=== PATIENT | male | born 1995 | race Caucasian/White ===

== ENCOUNTER 2020-02-20 19:42 | Emergency (ER) | payer OTHER ==
[~2020-02-20] VITALS: Ht 170.2 cm; Wt 70.3 kg
[2020-02-20] MEDS ORDERED: KEFLEX500 MG PO (20:13)
== END 2020-02-20 20:25 | disposition home or self-care (01) ==
LOC: ED 19:42
DX: L03.314 Cellulitis of groin (principal); F17.200 Nicotine dependence, unspecified, uncomplicated
CPT/HCPCS: 81001; 99283

== ENCOUNTER 2020-02-28 12:38 | Emergency (ER) | payer OTHER ==
[~2020-02-28] VITALS: Ht 170.2 cm; Wt 70.3 kg
[~2020-02-28 12:38] MED LIST: KEFLEX500 MG PO
--- OUTSIDE RECORDS SUMMARY | 2020-02-28 12:40 | XMS ---
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 Jv has no Care Guidelines for this patient. Jessica VISIT COUNT (12 MO.) 1 [facility] 2 [facility] T[facility] NOTE: Visits indicate total known visits. ED/UCC VISIT TRACKING (12 MO.) 02/28/2020 12:39 [facility] [place] [facility] COMPLAINT: - GROIN PAIN 02/20/2020 19:43 DEANDRA Kan OR TYPE: Emergency COMPLAINT: - SWOLLEN GROIN DIAGNOSES: - Cellulitis of groin - Left lower quadrant pain - Nicotine dependence, unspecified, uncomplicated 08/20/2019 11:31 Abe YOUNG OR TYPE: Emergency DIAGNOSES: - Left Thumb Injury - Followup Medical Problem - Thumb Injury - Laceration without foreign body of unspecified thumb without damage to nail, initial encounter - Laceration without foreign body of unspecified thumb without damage to nail, initial encounter INPATIENT VISIT TRACKING (12 MO.) No inpatient visits to display in this time frame [email or web address]
== END 2020-02-28 12:58 | disposition left against medical advice (07) ==
LOC: ED 12:38
DX: Z53.21 Procedure and treatment not carried out due to patient leaving prior to being seen by health care provider (principal)

== ENCOUNTER 2020-12-09 07:52 | Day surgery (SDC) | payer OTHER ==
[~2020-12-09] VITALS: Ht 172.7 cm; Wt 69.0 kg
[~2020-12-09 07:52] MED LIST changes: +BUSPIRONE HCL5 MG PO; +FAMOTIDINE20 MG PO
--- NOTE | 2020-12-09 09:24 | NUR ---
12/09/20 0924 Colby Alcala RESPONDS TO VOICE AT 0923. OPA REMOVED. DENIES NAUSEA OR PAIN. FALLS ASALEEP EASILY
--- NOTE | 2020-12-09 09:50 | NUR ---
0428-PATIENT BACK TO ROOM FROM PACU. RECEIVED REPORT FROM IRENE POPE. PATIENT IS AWAKE. RATES PAIN A 0/10 BUT HIS THROAT IS A LITTLE SORE. DENIES NAUSEA. VSS. PROVIDED PATEINT WITH WATER AND APPLESAUCE. MOM AT BEDSIDE. CALL LIGHT WITHIN REACH. 1000-PATEINT UP TO THE RESTROOM. GAIT STEADY TOLERATED WELL.
--- NOTE | 2020-12-09 10:50 | NUR ---
PATIENT RESTING IN BED. VSS. DENIES NAUSEA AND PAIN. PATIENT STATES THROAT A LITTLE SORE. DRINKING WATER. MOM AT BEDSIDE AND CALL LIGHT WITHIN REACH. PATIENT READY TO GO HOME.
--- NOTE | 2020-12-09 10:53 | OR ---
[facility] [address], [place] [address] Signed DATE OF OPERATION: 12/09/2020 SURGEON: Maris Macias MD PREOPERATIVE DIAGNOSIS: Epigastric abdominal pain. POSTOPERATIVE DIAGNOSIS: Moderate diffuse gastritis. PROCEDURES: EGD with CLOtest and biopsies of the antrum and distal esophagus. ESTIMATED BLOOD LOSS: None. INDICATIONS: Jus is a 25-year-old gentleman asked to see me for upper endoscopy. [place] 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 He said he has significant anxiety and therefore, he drinks 8-10 beers at night to help relax and go to bed. He also smokes a little marijuana to help relax. He likes to smoke 1-10 cigarettes a day. He will chew snuff about once every four months. He went to see his primary care provider. Apparently, he is taking Pepcid and that helps. He was asked to see me for consideration of upper endoscopy. It sounds like he even used omeprazole and Carafate. In the office, I gave him a pamphlet on upper endoscopy. We looked at that together in detail. He understands the nature of that test. There is risk including, but not limited to gas bloating, crampy abdominal pain, bleeding, perforation requiring surgery, and missed diagnosis. In addition because of his daily habits, he is clearly in need of monitored anesthesia care for sedation. In fact, he took a large amount of inhaled anesthetic today for his procedure. He had expressed understanding and wished to proceed. PROCEDURE NOTE: Jus was taken into our endoscopy suite and placed in a supine semi-recumbent position. He was placed under general endotracheal tube anesthesia. He did take a large amount of inhaled anesthetic and was just fine with his heart rate and blood pressure and so forth. In fact, he was breathing through large amounts of inhaled anesthetic. The adult gastroscope had been introduced and advanced under direct visualization out into the third portion of the duodenum. The duodenum and pyloric Electronically Signed By: MARIS MACIAS MD 12/09/20 1053 PATIENT NAME: JUS STEPHENS OPERATIVE REPORT DATE OF : [birth year] REPORT #: [id number] PHYSICIAN: MARIS MACIAS MD PCP: YRIS SOLIMAN MD REPORT IS CONFIDENTIAL AND NOT TO BE RELEASED WITHOUT AUTHORIZATION [facility] [address] [place], [place] [address] Signed channel were unremarkable. His stomach showed moderate diffuse erythematous changes throughout. There was no active bleeding. There were no ulcerations. We took biopsies from the antrum for pathologic review and CLOtest. Upon retroflexion of the scope, I really could not appreciate a true hiatal hernia. The scope was withdrawn up through the area of the GE junction, which was compliant without stricture. He has very minimal disruption to his Z-line with a little irritation in the distal esophagus. Therefore, we took an additional biopsy just above the Z-line for pathologic review. His middle and upper esophagus were unremarkable. After this, the gas was suctioned out and the gastroscope removed. Jus tolerated the procedure quite well. He was weaned from anesthesia, extubated in the OR, and taken to recovery room in stable condition. Maris Macias MD ALB/MODL /[id number] cc: MD Yris Vang MD Copies: MARIS MACIAS MD ~ Electronically Signed By: MARIS MACIAS MD 12/09/20 1053 PATIENT NAME: JUS STEPHENS JUANITA OPERATIVE REPORT DATE OF : [birth year] REPORT #: [id number] PHYSICIAN: MARIS MACIAS MD PCP: YRIS SOLIMAN MD REPORT IS CONFIDENTIAL AND NOT TO BE RELEASED WITHOUT AUTHORIZATION
--- NOTE | 2020-12-09 10:55 | NUR ---
PROVIDED PATINET WITH DISCHARGE INSTRUCTIONS. VERBALIZED UNDERSTANDING AND ALL QUESTIONS ANSWERED. PROVIDED PATIENT A WHEEL CHAIR RIDE TO FRONT OF HOSPITAL WHERE HIS RIDE WAS WAITING.
--- NOTE | 2020-12-13 13:41 | PATH ---
[facility] [address] [place], [place] [address] Signed SPECIMEN(S): A ANTRUM/PYLORUS BIOPSY SPECIMEN(S): B LOWER ESOPHAGUS BIOPSY SPECIMEN SOURCE: A. ANTRUM/PYLORUS BIOPSY B. LOWER ESOPHAGUS BIOPSY CLINICAL HISTORY: EGD. Epigastric pain. Postop: Gastritis. MICROSCOPIC DESCRIPTION: Histologic sections of all submitted blocks are examined by light microscopy. These findings, together with the gross examination, support the pathologic diagnosis. FINAL PATHOLOGIC DIAGNOSIS: A. Antrum/pylorus, biopsy: - No significant histopathologic alterations. B. Lower esophagus, biopsy: - Reflux esophagitis. - No evidence of Ortiz's esophagus COMMENT: Regarding specimen A, the sections through the gastric biopsies show fragments of histologically unremarkable antral mucosa. There is no evidence of acute or chronic inflammation. There is no evidence of H. pylori, intestinal metaplasia, abnormal infiltrates or neoplasia. Regarding specimen B, the sections through the biopsy show strips of reactive-appearing squamous mucosa with basal cell hyperplasia. The epithelium is infiltrated by lymphocytes and small numbers of eosinophils. No glandular mucosa or intestinal metaplasia is identified. TWK:emh:C2NR GROSS DESCRIPTION: Two specimens are received in two containers, labeled "MG." A. The specimen, labeled "MG, 1," and designated on the requisition "antrum/pylorus," is received in formalin and consists of one stover soft tissue fragment that measures 0.3 cm in greatest dimension. The specimen is entirely submitted in cassette (A1). B. The specimen, labeled "MG, 2," and designated on the requisition "lower esophagus," is received in formalin and consists of one stover soft tissue PATIENT NAME: JULIANNE STEPHENS PATHOLOGY DATE OF : [birth year] REPORT #: [id number] PHYSICIAN: ZINA MCCLAIN PCP: ZOHREH SOLIMAN MD REPORT IS CONFIDENTIAL AND NOT TO BE RELEASED WITHOUT AUTHORIZATION [facility] [address] [place] [address] Signed fragment that measures 0.3 cm in greatest dimension. The specimen is entirely submitted in cassette (B1). AT (under the direct supervision of a pathologist) The Gross Description was prepared using a voice recognition system. The report was reviewed for accuracy; however, sound-alike word errors, addition and/or deletions may occur. If there is any question about this report, please contact Client Services. PERFORMING LABORATORY: The technical component was performed by [email or web address] [address] (Miller Head Assistant Wet Process: Vicenta Morales MD; CLIA# [id number]). [facility], [address] [place] [address] (CLIA# [id number]). Diagnostician: Dennis Merida MD Pathologist Electronically Signed 12/13/2020 Copies: ~ PATIENT NAME: JULIANNE STEPHENS PATHOLOGY DATE OF : [birth year] REPORT #: [id number] PHYSICIAN: ZINA MCCLAIN PCP: ZOHREH SOLIMAN MD REPORT IS CONFIDENTIAL AND NOT TO BE RELEASED WITHOUT AUTHORIZATION
== END 2020-12-09 17:22 | disposition home or self-care (01) ==
LOC: OPS 07:52 → DS 07:52 → OPS 09:00 → DS 09:30 → OPS 10:00 → DS 10:00 → OPS 17:22
PROVIDERS: ATTEND Colon & Rectal Surgery
PROC: 0DB78ZZ Excision of Stomach, Pylorus, Via Natural or Artificial Opening Endoscopic (ICD-10-PCS; 2020-12-09)
PROC: 0DB38ZZ Excision of Lower Esophagus, Via Natural or Artificial Opening Endoscopic (ICD-10-PCS; principal; 2020-12-09 09:00)
DX: K21.00 Gastro-esophageal reflux disease with esophagitis, without bleeding (principal); K29.70 Gastritis, unspecified, without bleeding; F41.9 Anxiety disorder, unspecified; F12.90 Cannabis use, unspecified, uncomplicated; F17.210 Nicotine dependence, cigarettes, uncomplicated
CPT/HCPCS: 83009; J0330; J2704; J7121

== ENCOUNTER 2021-05-02 07:40 | Day surgery (SDC) | payer OTHER ==
[~2021-05-02] VITALS: Ht 172.7 cm; Wt 72.7 kg
[~2021-05-02 07:40] MED LIST changes: +WELLBUTRIN SR100 MG PO
--- NOTE | 2021-05-02 10:18 | NUR ---
05/02/21 1017 Lindsey Nash 1014 PATIENT ARRIVES TO PACU UNRESPONSIVE TO PAIN. ORAL AIRWAY IN PLACE. RESP EVEN AND UNLABORED, MASK AT 6 LITERS. PATIENT OBSTRUCTS WITH ORAL AIRWAY, RN HOLDING CHIN LIFT.
--- NOTE | 2021-05-02 11:42 | NUR ---
1120: PT ARRIVES TO UNIT VIA STRETCHER FROM PACU, AWAKE AND ALERT ON ARRIVAL. VSS, RESP EVEN AND UNLABORED. DRIP PAD SATURATED. CHANGED AND REINFORCED. TO CALL MARK IN 30MIN IF PERSISTS. DENIES PAIN AND REPORTS MILD NAUSEA. ENCGD PT TO SPIT OUT DRAINAGE RATHER THAN SWALLOWING. SCDS IN PLACE AND ICE WATER PROVIDED. NO FURTHER NEEDS AT THIS TIME. CALL LIGHT WITHIN REACH
--- NOTE | 2021-05-02 12:43 | NUR ---
1140: MOUSTACHE DRESSING SATURATED. NEW MOUSTACHE DRESSING PLACED. 1145: CALL PLACED TO DR. FLORES. NO ANSWER. WILL TRY CALLING AGAIN IN A FEW MINUTES. 1200: MOUSTACHE DRESSING CHANGED AGAIN. PATIENT SPITTING BLOODY SALIVA IN TO CUP. PATIENT ENCOURAGED NOT TO SWALLOW BLOOD. DR. FLORES CALLED AND UPDATED ON PATIENT. DR. FLORES SAID TO CONTINUE TO MONITOR FOR ANOTHER HOUR. 1212: MOUSTACHE DRESSING CHANGED AGAIN. 1225: MOUSTACHE DRESSING CHANGED.
--- NOTE | 2021-05-02 15:17 | NUR ---
05/02/21 1517 Sheets,Lexii 1506 PT ARRIVED TO PACU ON 6L VIA MASK, VSS. PT WAKES EASILY AND REPORT BEING DROWSY. PT REPORTS SMALL AMOUNT OF PAIN AND NO NAUSEA. 1512 O2 REMOVED.
--- NOTE | 2021-05-02 15:19 | NUR ---
1300: PATIENT CONTINUES TO HAVE LARGE AMOUNT OF DRAINAGE FROM NOSE. MOSTLY FROM LEFT SIDE. BLOOD CLOT SEEN BULGING FROM LEFT NOSTRIL. MOUSTACHE DRESSING CHANGED AGAIN. DAD AT BEDSIDE. CALL LIGHT WITHIN REACH. 1305: CALL PLACED TO DR. FLORES. NOTIFIED OF CONTINUED DRAINAGE AND BLOOD CLOT. DR. FLORES WILL COME AND SEE PATIENT. 1325: DR. FLORES IN TO ASSESS PATIENT. DR. FLORES INSTRUCTED PATIENT TO BLOW NOSE TO GET CLOTS OUT. LARGE CLOT BLOWN OUT FROM NOSE. PATIENT'S NOSE CONTINUED TO BLEED AFTER CLOT REMOVED. DR. FLORES PLACED NASAL PACKING IN LEFT NOSTRIL AT BEDSIDE. PROCEDURE WAS UNCOMFORTABLE FOR PATIENT, BUT OVERALL PATIENT TOLERATED PROCEDURE WELL. DENIED NEED FOR PAIN MEDICATION AFTER PROCEDURE COMPLETED. 1330: PATIENT'S FACE CLEANED WITH WET WASHCLOTH. NASAL PACKING STRING TAPED TO LEFT SIDE OF FACE. NEW MOUSTACHE DRESSING PLACED. PATIENT ASSISTED OOB AND TO BATHROOM. GAIT STEADY. VOID WITHOUT DIFFICULTY. GAIT STEADY BACK TO ROOM. 1340: MOUSTACHE DRESSING CHANGED. PATIENT STATES NOSE IS DRAINING SAME BEFORE. 1405: CHECKED PATIENT. MOUSTACHE DRESSING SATURATED. PATIENT STATES DAD CHANGED DRESSING ONCE SINCE RN WAS LAST IN ROOM. PATIENT DENIES ANY SLOW DOWN IN DRAINAGE. DR. FLORES UPDATED ON PATIENT. DR. FLORES STATES PATIENT WILL NEED TO GO BACK TO OR FOR CAUTERIZATION. 1410: IV FLUIDS RESTARTED. PATIENT GIVEN YANKEUR SUCTION TO CONTROL FOR BLOOD DRAINING IN TO MOUTH. MOUSTACHE DRESSING CHANGED. 1435: DR FLORES IN TO SPEAK WITH PATIENT AND FATHER. SURGICAL CONSENT SIGNED. PATIENT TAKEN BACK TO OR.
--- NOTE | 2021-05-02 15:54 | NUR ---
1540: PATIENT BACK IN DAY SURGERY ROOM FROM PACU. C/O THROAT PAIN. RATES PAIN 3/10. DENIES NEED FOR PAIN MEDICATION AT THIS TIME. C/O FEELING LIGHTHEADED. VS CHECKED. IV SITE WNL. MOUSTACHE DRESSING IN PLACE WITH SMALL AMOUNT OF BLOODY DRAINAGE. ICE WATER PLACED AT BEDSIDE. CALL LIGHT WITHIN REACH OF FATHER. FATHER AT BEDSIDE.
--- NOTE | 2021-05-02 16:47 | NUR ---
1640: VS CHECKED. RATES THROAT PAIN 2/10. CONTINUES TO HAVE LIGHTHEADEDNESS. ALSO C/O SOME NAUSEA. PATIENT STATES NAUSEA COULD BE RELATED TO NOT EATING ALL DAY. PATIENT WILLING TO TRY EATING APPLESAUCE TO HELP WITH NAUSEA. MOUSTACHE DRESSING IN PLACE AND CLEAN, DRY, AND INTACT. FATHER AT BEDSIDE. CALL LIGHT WITHIN REACH. 1645: ATTEMPTED TO CALL DR. FLORES ON CELL AND AT OFFICE FOR NAUSEA MEDICATION. NO ANSWER. 1648: OTHER RN CALLED DOORSHAKER FOR ORDER FOR NAUSEA MEDICATION. ORDER OBTAINED.
--- NOTE | 2021-05-02 16:56 | OR ---
[facility] [address] [place], [place] [address] Signed DATE OF OPERATION: 05/02/2021 SURGEON: Wilfred Quick MD PREOPERATIVE DIAGNOSIS: Septal deformity. POSTOPERATIVE DIAGNOSIS: Septal deformity. PROCEDURE: Septoplasty. ANESTHESIA: General, LMA; POWDER CARRIER, Mignon PREOP HISTORY: Thong is a 25-year-old man with a long history of left-sided nasal pain radiating up towards the eye. CAT scan has shown a septal deformity on the left side impinging on the lateral nasal wall, which was presumptively causative. Exam in the office has confirmed this impingement and he was taken to the operating for the above-mentioned procedures. OPERATIVE PROCEDURE AND FINDINGS: After informed consent, the patient was taken to the operating room, placed in supine position, where general LMA anesthesia was induced. The patient and procedure were verified. The patient received preoperative intravenous Ancef and intranasal oxymetazoline. Headlight speculum exam of the nasal cavity showed a small spur inferiorly on the right side of the septum. A large spur on the left, impinging on the inferior turbinate and posteriorly on the posterior nasal cavity. A 1% lidocaine with epi was injected in the septal mucosa. Mucosa was elevated off the deviated septal bone and cartilage and the deviation was excised with the Michael on the right side, and on the left side anteriorly the spur and posteriorly the shelf, which was obstructive. All deviated material was removed. Airway was improved in this manner. Minimal bleeding stopped afterwards. Pharynx was suctioned off clear blood secretions. The patient was then awakened, extubated, and transported to the recovery room in good condition. COMPLICATIONS: No complications. Electronically Signed By: WILFRED QUICK MD 05/02/21 1656 PATIENT NAME: JULIANNE STEPHENS OPERATIVE REPORT DATE OF : [birth year] REPORT #: [id number] PHYSICIAN: WILFRED QUICK MD PCP: ZOHREH SOLIMAN MD REPORT IS CONFIDENTIAL AND NOT TO BE RELEASED WITHOUT AUTHORIZATION [address] [address] Signed ESTIMATED BLOOD LOSS: Minimal. SPECIMENS: No specimens. DRAINS: No drains. PACKING: No packing. Wilfred Quick MD /MODL /[id number] Copies: ~ Electronically Signed By: WILFRED QUICK MD 05/02/21 1656 PATIENT NAME: JULIANNE STEPHENS OPERATIVE REPORT DATE OF : [birth year] REPORT #: [id number] PHYSICIAN: WILFRED QUICK MD PCP: ZOHREH SOLIMAN MD REPORT IS CONFIDENTIAL AND NOT TO BE RELEASED WITHOUT AUTHORIZATION
--- NOTE | 2021-05-02 17:47 | NUR ---
1700: DR. FLORES IN TO ASSESS PT, VERBALLY STATES PT IS OKAY TO DC HOME. PT GIVEN IV NAUSEA MED; SEE EMAR. 1730: PT DRESSES SELF AND AMBULATES TO BATHROOM WITH STEADY GAIT. PT BACK TO DS RM 4 AND DC INSTRUCTIONS PRESENTED VERBALLY AND WRITTEN TO PT AND FATHER. IV REMOVED WNL AND COBAN PRESSURE DRESSING PLACED, ENCOURAGED TO REMOVE IN APPROX 15 MINUTES. MUSTACHE DRESSING CHANGED FOR RIDE HOME AND ADDITIONAL SUPPLIES PROVIDED TO TAKE HOME. PT DC VIA WC TO FATHER'S TRUCK PARKED AT HOSPITAL ENTRANCE TO HOME.
== END 2021-05-02 17:37 | disposition home or self-care (01) ==
LOC: DS 07:40 → OPS 07:40 → DS 07:41 → OPS 09:30
PROVIDERS: ATTEND Otolaryngology
PROC: 09BM0ZZ Excision of Nasal Septum, Open Approach (ICD-10-PCS; principal; 2021-05-02 09:30)
DX: J34.2 Deviated nasal septum (principal); R51.9 Headache, unspecified
CPT/HCPCS: J0330; J0690; J1100; J1790; J1885; J2001; J2250; J2405; J2704; J3010; J7121

== ENCOUNTER 2021-05-02 23:46 | Emergency (ER) | payer OTHER ==
[~2021-05-02] VITALS: Ht 172.7 cm; Wt 72.6 kg
--- OUTSIDE RECORDS SUMMARY | 2021-05-02 23:50 | XMS ---
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 CRITERIA MET - Group Notification - ED - Positive COVID-19 Lab Result - [facility] CARE PROVIDERS VY KEITA [facility]/Center: [facility] PHONE: [phone] TERESE MAYEN [facility] Current PHONE: [phone] Jv has no Care Guidelines for this patient. Care History Medical/Surgical 03/01/2020 [facility] CALLED PATIENT- PATIENT DOES NOT HAVE A PCP- - PATIENT MAILBOX IS FULL AND CANT ACCEPT MESSAGES AT THIS TIME. - SENT NO PCP LETTER. E.D. VISIT COUNT (12 MO.) 1 DEANDRA Judd TOTAL 1 NOTE: Visits indicate total known visits. ED/UCC VISIT TRACKING (12 MO.) 05/02/2021 23:46 DEANDRA Kan [place] TYPE: Emergency COMPLAINT: - POST OP BLEEDING INPATIENT VISIT TRACKING (12 MO.) No inpatient visits to display in this time frame [email or web address]
== END 2021-05-03 02:58 | disposition home or self-care (01) ==
LOC: ED 23:46
DX: R04.0 Epistaxis (principal); F17.200 Nicotine dependence, unspecified, uncomplicated; Z79.899 Other long term (current) drug therapy
CPT/HCPCS: 36415; 85025; 85610; 85730; 96374; 99283-25; J2060; J7030

== ENCOUNTER 2022-04-02 11:59 | Emergency (ER) | payer OTHER ==
[~2022-04-02] VITALS: Ht 172.7 cm; Wt 68.0 kg
--- OUTSIDE RECORDS SUMMARY | 2022-04-02 12:08 | XMS ---
PreManage Notification: JULIANNE STEPHENS Security [employer] Events No recent Security Events currently on file CRITERIA MET - Group Notification CARE PROVIDERS VY KEITA [facility]: [facility] PHONE: [phone] TIARRA [facility] Current PHONE: [phone] Jv has no Care Guidelines for this patient. Care History Medical/Surgical 03/01/2020 [facility] CALLED PATIENT- PATIENT DOES NOT HAVE A PCP- - PATIENT MAILBOX IS FULL AND CANT ACCEPT MESSAGES AT THIS TIME. - SENT NO PCP LETTER. E.D. VISIT COUNT (12 MO.) 2 [facility] TOTAL 2 NOTE: Visits indicate total known visits. ED/UCC VISIT TRACKING (12 MO.) 04/02/2022 11:59 DEANDRA Kan [place] TYPE: Emergency COMPLAINT: - MEDICAL CLEARANCE 05/02/2021 23:46 DEANDRA Kan [place] TYPE: Emergency COMPLAINT: - POST OP BLEEDING DIAGNOSES: - Nicotine dependence, unspecified, uncomplicated - Epistaxis - Other halfway (current) drug therapy INPATIENT VISIT TRACKING (12 MO.) No inpatient visits to display in this time frame [email or web address]
== END 2022-04-03 12:43 | disposition home or self-care (01) ==
LOC: ED 11:59
DX: R45.851 Suicidal ideations (principal); F10.129 Alcohol abuse with intoxication, unspecified; Y90.8 Blood alcohol level of 240 mg/100 ml or more; F17.200 Nicotine dependence, unspecified, uncomplicated; Z79.899 Other long term (current) drug therapy
CPT/HCPCS: 36415; 80053; 81003; 84443; 85025; 96374; 99284-25; A9270; G0480; J2060

== ENCOUNTER 2022-08-08 17:02 | Emergency (ER) | payer OTHER ==
[~2022-08-08] VITALS: Ht 172.7 cm; Wt 68.0 kg
--- OUTSIDE RECORDS SUMMARY | 2022-08-08 17:08 | XMS ---
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 Care History Medical/Surgical 03/01/2020 [facility] CALLED PATIENT- PATIENT DOES NOT HAVE A PCP- - PATIENT MAILBOX IS FULL AND CANT ACCEPT MESSAGES AT THIS TIME. - SENT NO PCP LETTER. E.D. VISIT COUNT (12 MO.) 2 DEANDRA Judd TOTAL 2 NOTE: Visits indicate total known visits. ED/UCC VISIT TRACKING (12 MO.) 08/08/2022 17:02 DEANDRA Kan [place] TYPE: Emergency COMPLAINT: - CHEST PAIN 04/02/2022 11:[address] [facility] [place] TYPE: Emergency COMPLAINT: - MEDICAL CLEARANCE DIAGNOSES: - Alcohol abuse with intoxication, unspecified - Blood alcohol level of 240 mg/100 ml or more - Nicotine dependence, unspecified, uncomplicated - Other assisted (current) drug therapy - Suicidal ideations INPATIENT VISIT TRACKING (12 MO.) No inpatient visits to display in this time frame [email or web address]
[2022-08-08 19:55] VITALS: BP 123/85
--- NOTE | 2022-08-09 12:29 | EKG ---
[facility] [address] [facility] [place], [place] [address] Signed Sinus tachycardia Otherwise normal ECG No previous ECGs available Confirmed by ALAN PELAYO MD ([id number]) on 08/09/2022 12:29:42 PM Electronically Signed By: ALAN PELAYO MD 08/09/22 1229 PATIENT NAME: STEPHENSJULIANNE Electrocardiogram DATE OF : [birth year] PHYSICIAN: ALAN PELAYO MD REPORT #: [id number] REPORT IS CONFIDENTIAL AND NOT TO BE RELEASED WITHOUT AUTHORIZATION
== END 2022-08-08 19:55 | disposition home or self-care (01) ==
LOC: ED 17:02
DX: R07.9 Chest pain, unspecified (principal); F10.10 Alcohol abuse, uncomplicated; Y90.8 Blood alcohol level of 240 mg/100 ml or more; F17.200 Nicotine dependence, unspecified, uncomplicated; Z79.899 Other long term (current) drug therapy
CPT/HCPCS: 36415; 71046; 80053; 81003; 83690; 83735; 84484; 85025; 93005; 93010; 99285-25; 99406; G0480

== ENCOUNTER 2022-08-29 19:22 | Emergency (ER) | payer OTHER ==
[~2022-08-29] VITALS: Ht 172.7 cm; Wt 68.0 kg
--- OUTSIDE RECORDS SUMMARY | 2022-08-29 19:30 | XMS ---
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 Care History Medical/Surgical 03/01/2020 [facility] CALLED PATIENT- PATIENT DOES NOT HAVE A PCP- - PATIENT MAILBOX IS FULL AND CANT ACCEPT MESSAGES AT THIS TIME. - SENT NO PCP LETTER. Jessica VISIT COUNT (12 MO.) 3 DEANDRA Judd TOTAL 3 NOTE: Visits indicate total known visits. ED/UCC VISIT TRACKING (12 MO.) 08/29/2022 19:22 DEANDRA Kan OR TYPE: Emergency COMPLAINT: - SHAKING,POSS SEIZURE 08/08/2022 17:02 DEANDRA Kan OR TYPE: Emergency COMPLAINT: - CHEST PAIN DIAGNOSES: - Alcohol abuse, uncomplicated - Blood alcohol level of 240 mg/100 ml or more - Chest pain, unspecified - Nicotine dependence, unspecified, uncomplicated - Other longterm (current) drug therapy 04/02/2022 11:59 DEANDRA Kan [place] TYPE: Emergency COMPLAINT: - MEDICAL CLEARANCE DIAGNOSES: - Alcohol abuse with intoxication, unspecified - Blood alcohol level of 240 mg/100 ml or more - Nicotine dependence, unspecified, uncomplicated - Other long lines operator (current) drug therapy - Suicidal ideations INPATIENT VISIT TRACKING (12 MO.) No inpatient visits to display in this time frame [email or web address]
[2022-08-29] MEDS ORDERED: HYDROXYZINE HCL25 MG PO (20:07)
[2022-08-29] MEDS ORDERED: CHLORDIAZEPOXID25 MG PO (22:35)
[2022-08-29 23:05] VITALS: BP 132/85
== END 2022-08-29 23:06 | disposition home or self-care (01) ==
LOC: ED 19:22
DX: F10.20 Alcohol dependence, uncomplicated (principal); F17.200 Nicotine dependence, unspecified, uncomplicated; Z79.899 Other long term (current) drug therapy
CPT/HCPCS: 36415; 80053; 81003; 83735; 85025; G0480; J2060; J2405; J3411; J7030